=== PATIENT | male | born 1950 | race Hispanic/Latino ===

== ENCOUNTER → 2021-12-27 | Outpatient (CLI) | payer OTHER | END | disposition home or self-care (01) | LOC: RAH 09:19 | PROVIDERS: ATTEND Physical Medicine & Rehabilitation | DX: I70.223 Atherosclerosis of native arteries of extremities with rest pain, bilateral legs (principal) | CPT/HCPCS: 93925 ==

== ENCOUNTER → 2022-01-09 | Outpatient (CLI) | payer OTHER | END | disposition home or self-care (01) | LOC: RAH 13:57 | PROVIDERS: ATTEND Physical Medicine & Rehabilitation | DX: M54.16 Radiculopathy, lumbar region (principal); R20.0 Anesthesia of skin | CPT/HCPCS: 72131 ==

== ENCOUNTER → 2022-05-16 | Outpatient (CLI) | payer OTHER | END | disposition home or self-care (01) | LOC: RAH 11:01 | PROVIDERS: ATTEND Physical Medicine & Rehabilitation | DX: M47.816 Spondylosis without myelopathy or radiculopathy, lumbar region (principal); M99.03 Segmental and somatic dysfunction of lumbar region; M53.3 Sacrococcygeal disorders, not elsewhere classified; M54.50 Low back pain, unspecified | CPT/HCPCS: 72114 ==

== ENCOUNTER → 2022-05-31 | Outpatient (CLI) | payer OTHER | END | disposition home or self-care (01) | LOC: RAH 09:59 | PROVIDERS: ATTEND Physical Medicine & Rehabilitation | DX: M47.812 Spondylosis without myelopathy or radiculopathy, cervical region (principal); M25.561 Pain in right knee; M25.562 Pain in left knee; M48.02 Spinal stenosis, cervical region | CPT/HCPCS: 72050 ==

== ENCOUNTER → 2022-06-12 | Outpatient (CLI) | payer OTHER | END | disposition home or self-care (01) | LOC: RAH 13:13 | PROVIDERS: ATTEND Physical Medicine & Rehabilitation | DX: M47.812 Spondylosis without myelopathy or radiculopathy, cervical region (principal); M50.30 Other cervical disc degeneration, unspecified cervical region; M48.02 Spinal stenosis, cervical region | CPT/HCPCS: 72141 ==

== ENCOUNTER → 2023-08-12 | Outpatient (CLI) | payer OTHER | END | disposition home or self-care (01) | LOC: RAH 12:42 | PROVIDERS: ATTEND Physical Medicine & Rehabilitation | DX: M17.9 Osteoarthritis of knee, unspecified (principal) | CPT/HCPCS: 73565; 73560 ==